=== PATIENT | female | born 1965 | race Caucasian/White ===

== ENCOUNTER → 2024-03-04 17:33 | Outpatient (REF) | payer OTHER, SELFPAY | LOC: WDC 17:33 | PROVIDERS: ATTENDING PHYSICIAN Physician Assistant Medical; FAMILY PHYSICIAN Obstetrics & Gynecology | DX: Z12.31 Encounter for screening mammogram for malignant neoplasm of breast (principal) | CPT/HCPCS: 77063; 77067 ==

== ENCOUNTER → 2025-03-05 17:02 | Outpatient (REF) | payer OTHER, SELFPAY | LOC: WDC 17:02 | PROVIDERS: ATTENDING PHYSICIAN Family Medicine | DX: Z12.31 Encounter for screening mammogram for malignant neoplasm of breast (principal) | CPT/HCPCS: 77063; 77067 ==

== ENCOUNTER 2025-07-31 06:13 | Day surgery (SDC) | payer OTHER, SELFPAY | END 2025-07-31 15:20 | disposition home or self-care (01) | LOC: GI 06:13 | PROVIDERS: ATTENDING PHYSICIAN Internal Medicine; FAMILY PHYSICIAN Family Medicine | DX: Z12.11 Encounter for screening for malignant neoplasm of colon (principal); K64.8 Other hemorrhoids; D12.0 Benign neoplasm of cecum; D12.7 Benign neoplasm of rectosigmoid junction; K62.1 Rectal polyp | CPT/HCPCS: 45385; 45380; 88305 ==